=== PATIENT | female | born 1945 | race Hispanic/Latino ===

== ENCOUNTER → 2024-09-13 | Outpatient (CLI) | payer MEDICARE ==
--- NOTE | 2024-09-14 13:26 | HMCIMG ---
THORACIC SPINE 2VWS REASON: Meralgia paresthetica, left lower limb; Radiculopathy, lumbar region COMPARISON: None. TECHNIQUE: 2 images were obtained. FINDINGS: There are normal appearing vertebral bodies. Interspace heights are well preserved. There are no visible fractures. Soft tissues appear unremarkable. IMPRESSION: 1. Normal views of the thoracic spine.
--- NOTE | 2024-09-14 13:26 | HMCIMG ---
Exam: Lumbar spine 4 views including flexion and extension views. Reason: Low back pain. There is 15 degree dextro scoliosis of the lumbar spine epicentered at L3. Spine appears otherwise unremarkable in the AP view. SI joints are preserved. Neutral lateral standing view shows a 4 mm anterior subluxation of L4 on L5. There is otherwise normal alignment of vertebral bodies. Interspace heights are preserved. Flexion-extension views were performed. There are moderate degenerative changes posterior facets at L4-5 and L5-S1. The anterior subluxation L4 on L5 remains between 4 and 5 mm on both flexion and extension views. Alignment appears otherwise unremarkable. IMPRESSION: 1. Degenerative changes with 15 degrees dextroscoliosis. 2. 4 mm anterior subluxation L4 on L5 on neutral standing lateral view, this does not change on flexion or extension views.
== END | disposition home or self-care (01) ==
LOC: RAH 16:03
PROVIDERS: ATTEND Family Medicine
DX: M47.817 Spondylosis without myelopathy or radiculopathy, lumbosacral region (principal); M41.86 Other forms of scoliosis, lumbar region
CPT/HCPCS: 72070; 72114

== ENCOUNTER → 2024-10-12 | Outpatient (CLI) | payer MEDICARE ==
--- NOTE | 2024-10-13 10:23 | HMCIMG ---
EXAM: MR Lumbar Spine Without Intravenous Contrast. CLINICAL HISTORY: Pain. TECHNIQUE: Magnetic resonance images of the lumbar spine in multiple planes. CONTRAST: None. COMPARISON: X-ray lumbar spine dated 09/13/24. FINDINGS: For this examination, spinal levels were labeled assuming five non-rib bearing, lumbar-type vertebrae with the inferior labeled L5. No acute fracture. Normal lordotic curvature. Mild dextroscoliosis. Normal vertebral body heights. Normal marrow signal of the vertebrae. Moderate lumbar spondylosis with multilevel marginal osteophytes, facet arthropathy, ligamentum flavum hypertrophy, disc desiccation and degenerative disc space reduction, most pronounced at L2-L3. Grade I degenerative anterolisthesis of L4 over L5. Grade I degenerative retrolisthesis of L2 over L3. Conus medullaris terminates at the T12-L1 level. No abnormal epidural masses. The surrounding soft tissues are unremarkable. Individual spinal levels are described as follows: T12-L1: 3 mm diffuse disc bulge. No neural foraminal, lateral recess or spinal canal stenosis. L1-L2: 3 mm diffuse disc bulge. Mild right and moderate left lateral recess and neural foraminal stenosis. No spinal canal stenosis. L2-L3: 7 mm diffuse disc bulge. Bilateral ligamentum flavum and facet hypertrophy. Mild right and severe left lateral recess and neural foraminal stenosis. Moderate spinal canal stenosis. Left exiting nerve root impingement. L3-L4: 5 mm diffuse disc bulge. Bilateral ligamentum flavum and facet hypertrophy. Moderate right and severe left lateral recess and neural foraminal stenosis. Moderate spinal canal stenosis. L4-L5: 5 mm diffuse disc bulge. Bilateral ligamentum flavum and facet hypertrophy. Severe bilateral lateral recess and moderate bilateral neural foraminal stenosis. Severe spinal canal stenosis. Bilateral traversing nerve root impingement. L5-S1: 5 mm diffuse disc bulge. Bilateral ligamentum flavum and facet hypertrophy. Severe right lateral recess and neural foraminal stenosis. No spinal canal stenosis. Right exiting nerve root impingement. IMPRESSION: Moderate lumbar spondylosis with multilevel marginal osteophytes, facet arthropathy, ligamentum flavum hypertrophy, disc desiccation and degenerative disc space reduction, most pronounced at L2-L3. Grade I degenerative anterolisthesis of L4 over L5. Grade I degenerative retrolisthesis of L2 over L3 and L3 over L4. Mild dextroscoliosis. Diffuse disc bulges from T12-L1 through L5-S1, most pronounced at L2-L3. Mild right and moderate left lateral recess and neural foraminal stenosis at L1-L2. Mild right and severe left lateral recess and neural foraminal stenosis at L2-L3 with spinal canal stenosis and left exiting nerve root impingement. Moderate right and severe left lateral recess and neural foraminal stenosis at L3-L4 with moderate spinal canal stenosis. Severe bilateral lateral recess and moderate bilateral neural foraminal stenosis at L4-L5 with severe spinal canal stenosis and bilateral traversing nerve root impingement. Severe right lateral recess and neural foraminal stenosis at L5-S1 with right exiting nerve root impingement. X-ray lumbar spine dated 09/13/24 reveals similar findings of moderate spondylosis, mild dextroscoliosis and spondylolisthesis from L2-L5. /[place]
== END | disposition home or self-care (01) ==
LOC: RAH 14:32
PROVIDERS: ATTEND Physical Medicine & Rehabilitation
DX: M47.26 Other spondylosis with radiculopathy, lumbar region (principal); M47.818 Spondylosis without myelopathy or radiculopathy, sacral and sacrococcygeal region; M51.34 Other intervertebral disc degeneration, thoracic region; M51.16 Intervertebral disc disorders with radiculopathy, lumbar region; M43.16 Spondylolisthesis, lumbar region; M53.3 Sacrococcygeal disorders, not elsewhere classified; M48.07 Spinal stenosis, lumbosacral region; M25.78 Osteophyte, vertebrae; M41.86 Other forms of scoliosis, lumbar region
CPT/HCPCS: 72148